=== PATIENT | female | born 1970 | race Caucasian/White ===

== ENCOUNTER 2024-07-11 07:14 | Emergency (ER) | payer OTHER, SELFPAY ==
--- NOTE | ~2024-07-11 | XR_ITS ---
CLINICAL HISTORY: pain, s p fall Two views of the right hand and two views of the right wrist Comparison: None Findings: There is a comminuted, angulated distal right radial fracture and a minimally displaced ulnar styloid fracture. No erosions. No radiopaque foreign body. IMPRESSION: Comminuted, angulated distal right radial fracture and minimally displaced ulnar styloid fracture This document has been electronically signed by: Lavon Hernandez MD on 07/11/2024 07:59:54
--- NOTE | ~2024-07-11 | XR_ITS ---
EXAMINATION: XR HAND/WRIST, RIGHT CLINICAL INFORMATION: post reduction COMPARISON: Earlier same day. TECHNIQUE: PA, lateral, and oblique views of the right hand and wrist. FINDINGS: Casting material overlies the wrist, obscuring fine bony detail. Interval reduction of a comminuted, dorsally angulated distal radial fracture with mild displacement. There is improved angulation with a tiny amount of residual dorsal angulation present. There is improved medial displacement, however persistent mild impaction of the distal fracture fragment. Ulnar styloid avulsion fracture is unchanged. On the lateral projection, there is a osseous density dorsal to the hamate, possible artifactual obliquity although a dorsal hamate avulsion is not excluded. No additional carpal abnormalities. Minimal arthritis in the STT and first CMC joints. XR/XR hand wrist RT IMPRESSION: 1. Interval reduction with near-anatomic fracture orientation, comminuted distal radius fracture. Minimal dorsal angulation persists. 2. Ulnar styloid fracture, unchanged. 3. Questionable dorsal hamate avulsion versus obliquity artifact on the lateral projection. Electronically signed by: Portillo Sierra MD 07/11/2024 09:41 AM [facility] [place]
[2024-07-11 07:19] VITALS: BP 105/47; PULSE 72; RESP 16; TEMP 36.1; O2SAT 96; BMI 28.4
[2024-07-11] MEDS: Acetaminophen 325 MG TABLET 975 MG PO (07:25)
--- OUTSIDE RECORDS SUMMARY | 2024-07-11 07:56 | XMS_ITS | Patient Health Record ---
Author Organization [facility] Address [address] [place] [address] Care Team Providers Care Balance Staff Inspector Name Role Phone Josseline Gunn Unavailable [phone] Allergies Allergen (clinical drug ingredient) Drug/Non Drug Allergy documented on EMR Reaction Allergy Type Onset Date Status Latex Latex Unknown Allergy Active Reason For Referral No Information Medications Medication SIG (Take, Route, Frequency, Duration) Notes Start Date End Date Status vitamin Active Social History Tobacco Use: Social History Observation Description Date Details (start date - stop date) Never Smoker NA - NA Tobacco Use/Smoking Question Answer Notes Are you a: nonsmoker Additional Findings: Tobacco Non-User Current no n-smoker Alcohol Screen Question Answer Notes Did you have a drink containing alcohol in the p ast year? Yes Points 0 Interpretation Negative Tobacco use other than smoking: Question Answer Notes Are you an other tobacco user? No Problems Problem Type SNOMED Code ICD Code Onset Dates Problem Status W/U Status Risk Notes Problem Plantar wart (52874505) Plantar wart (B07.0) Active confirmed Plan Of Treatment No Information Medical (General) History Medical History History ICD Code covid-19 Headaches/Migraines Surgical History Surgery Date(Month/Year) gall bladder 2016
--- NOTE | 2024-07-11 08:41 | ED.EXTPRO ---
HPI - Extremity Problem General Chief complaint: Extremity Injury, Upper Stated complaint: R wrist injury Time Seen by Provider: 07/11/24 08:30 Source: patient Mode of arrival: ambulatory Limitations: no limitations History of Present Illness HPI Narrative: this is a very pleasant 54 years old the patient presented to the emergency department complaining of right wrist pain she admits the step and fell chief complaint of right wrist pain not injury MD Complaint: extremity pain Pain Consistency: constant Location: right and other (wrist) Quality: aching Radiation: none Relieving factors: nothing Exacerbating factors: nothing Associated symptoms: denies other symptoms Related Data Previous Rx's ?Medication ?Instructions ?Recorded ibuprofen 800 mg tablet 800 mg PO Q8H PRN pain #20 tabs 07/11/24 oxycodone 5 mg tablet 5 mg PO Q6H PRN pain #15 tabs 07/11/24 Allergies Allergy/AdvReac Type Severity Reaction Status Date / Time No Known Allergies Allergy Verified 07/11/24 07:22 Review of Systems Constitutional: Constitutional: Reports no additional constitutional complaints Cardiovascular: Cardiovascular: Reports no additional cardiovascular complaints Neurologic: Reports system reviewed and no additional complaints, except as documented [facility] Past Medical History Attestation statement: The following information was validated with the patient. Social History Social History Advance Directives: No Advance Directives Information Provided: Yes Physical Exam Vital Signs: Vital Signs: Last Vital Signs Temp 97.0 F 07/11/24 07:19 Pulse 72 07/11/24 07:19 Resp 16 07/11/24 07:19 BP 105/47 L 07/11/24 07:19 Pulse Ox 96 07/11/24 07:19 O2 Del Method Room Air 07/11/24 07:19 BMI result Body Mass Index 28.4 no acute distress Const: General: cooperative Nutritional Appearance: average body habitus Orientation/consciousness: patient oriented x3 Limitations: no limitations HEENT: Head: Yes normal to inspection General nose exam: Normal external nose present Face and sinus: Yes normal facial exam Neck: Neck: Yes normal visual inspection and Yes full ROM Resp: Effort & Inspection: normal respiratory effort Cardio: Jugular venous distension: no JVD Rate: regular rate Rhythm: regular rhythm GI: Inspection: Yes normal to inspection Palpation (GI): Soft to palpation Neuro: General: patient oriented x3 Cranial nerves: Yes CN's II-XII intact bilaterally Extrem: Other: tenderness deformity in the right wrist positive pulses Course Reevaluation(s) Reevaluation #1: fracture was reduced by me discussed with Rohan Dubois Time: 10:10 Medications Administered Discontinued Medications Generic Name Dose Route Start Last Admin Trade Name Kerline PRN Reason Stop Dose Admin Acetaminophen 975 mg 07/11/24 07:23 07/11/24 07:25 Acetaminophen 325 Mg Tablet PO 07/11/24 07:24 975 mg ONCE ONE Administration Lidocaine HCl 20 ml 07/11/24 08:30 07/11/24 09:03 Lidocaine Hcl 1 % 20 Ml Vial SUBCUT 07/11/24 08:31 20 ml ONCE ONE Administration Lorazepam 1 mg 07/11/24 08:54 07/11/24 09:02 Lorazepam 2 Mg/Ml Vial IVPUSH 07/11/24 08:55 1 mg ONCE ONE Administration Morphine Sulfate 4 mg 07/11/24 08:45 07/11/24 09:14 Morphine Sulfate 4 Mg/Ml Cartridge IVPUSH 07/11/24 08:46 Not Given ONCE ONE Protocol Ondansetron HCl 4 mg 07/11/24 08:45 07/11/24 09:02 Ondansetron Hcl 4 Mg/2 Ml Vial IVPUSH 07/11/24 08:46 4 mg ONCE ONE Administration Medical Decision Making Medical Decision Making [facility] Narrative: patient presented with wrist pain after fall we will obtain x-ray Differential Diagnosis Differential Diagnoses: The differential diagnosis associated with the presentation includes differential diagnosis wrist fracture/ dislocation of the wrist Admission/Observation Consideration of admission/observation: Escalation of care including admission/observation considered Consult Healthcare Provider Management of the patient was discussed with: [employer] Press Supervisor Silvino Madrigal Independent Interpretation I performed an independent interpretation of an: Plain X-Ray Interpretation: x-ray reviewed interpreted by me as comminuted distal radial fracture Radiology Impression Discussion of test interpretation with radiology: I have reviewed the radiologist's reading. Radiologist Impression: Two views of the right hand and two views of the right wrist Comparison: None Findings: There is a comminuted, angulated distal right radial fracture and a minimally displaced ulnar styloid fracture. No erosions. No radiopaque foreign body. IMPRESSION: Comminuted, angulated distal right radial fracture and minimally displaced ulnar styloid fracture This document has been electronically signed by: Lavon Hernandez MD on 07/11/2024 07:59:54 Dictated By: Lavon Hernandez MD Signed By: <Electronically signed by Lavon Hernandez MD in OV> Prescription Management I considered prescription management with: Pain Medication Procedures Orthopedic Fracture Reduction Fracture #1: Time Out Performed: Yes Side: right Fracture Reduction Location: radius Analgesia: hematoma block Technique: direct manipulation and traction/counter-traction Post Reduction X-rays Demonstrate: acceptable reduction Post-reduction neuro exam: intact Post-reduction vascular exam: intact Splint Applied: Yes Patient Tolerated Procedure: well and no complications Discharge Plan Discharge Clinical Impression: Fracture of wrist Qualifiers: Encounter type: initial encounter Fracture type: closed Laterality: right Qualified Code(s): S62.101A - Fracture of unspecified carpal bone, right wrist, initial encounter for closed fracture Patient Disposition: Home, Self-Care Instructions: Wrist Fracture in Adults (ED) Additional Instructions: follow-up with ortho call today and make an appointment, we sent a prescription for you to [facility], make sure you call Dr. Morris for follow-up keep your splint on Prescriptions: New oxycodone 5 mg tablet 5 mg PO Q6H PRN (Reason: pain) Qty: 15 0RF Rx Instructions: partial filing upon pt request; Partial Fill upon patient request. ibuprofen 800 mg tablet 800 mg PO Q8H PRN (Reason: pain) Qty: 20 0RF Referrals: Jose Morris MD [Physician] - 2 days Print Language: Welsh
[2024-07-11] MEDS: ondansetron HCL 4 MG/2 ML VIAL IVPUSH (09:02)
[2024-07-11] MEDS: LORazepam 2 MG/ML VIAL 1 MG IVPUSH (09:02)
[2024-07-11] MEDS: Lidocaine HCl 1 % 20 ML VIAL SUBCUT (09:03)
[2024-07-11 10:14] VITALS: BP 133/70; PULSE 83; RESP 16; O2SAT 96
[2024-07-11 10:35] VITALS: BP 133/70; PULSE 83; RESP 16; TEMP 36.1; O2SAT 96
== END 2024-07-11 10:37 | disposition home or self-care (01) ==
PROVIDERS: Emergency Provider Emergency Medicine; PCP Internal Medicine
DX: S52.571A Other intraarticular fracture of lower end of right radius, initial encounter for closed fracture (principal); S52.611A Displaced fracture of right ulna styloid process, initial encounter for closed fracture; W00.0XXA Fall on same level due to ice and snow, initial encounter; Y93.9 Activity, unspecified; Y92.89 Other specified places as the place of occurrence of the external cause; Y99.9 Unspecified external cause status
CPT/HCPCS: 25605; 73110; 73130; 96374; 96375; 99283; 99284; J2003; J2060; J2405

== ENCOUNTER → 2024-07-11 07:40 | Outpatient (BNV) | payer OTHER, SELFPAY | PROVIDERS: Emergency Provider Emergency Medicine; PCP Internal Medicine; Visit Provider Radiology Vascular & Interventional Radiology | DX: S52.501A Unspecified fracture of the lower end of right radius, initial encounter for closed fracture (principal) | CPT/HCPCS: 73110; 73130 ==